=== PATIENT | male | born 1980 | race Caucasian/White ===

== ENCOUNTER 2021-12-28 13:24 | Outpatient (CLI) | payer MEDICARE ==
[2021-12-28 14:38] VITALS: BP 138/82
--- NOTE | 2021-12-28 14:38 | SLEEP CARE CONSULTATION ---
Information from patient questionnaire entered by Tonya Haines. I have reviewed and concur with the information entered by Tonya Haines. This document represents the service I personally performed and the decisions made by me, Kimberlee Thurman ARNP. History of Present Illness Service Date and Time: 12/28/2021 1324 Reason for Visit: New patient Chief Complaint: reports: Insomnia, Unrefreshed sleep, Snoring, Observed pauses in breathing, Fatigue, Frequent awakenings at night Date of Onset: 5+ years Usual bedtime: 2AM Time it takes to fall asleep: 1HR Snores at night: Yes Observed to quit breathing while asleep: Yes Sleeps alone due to snoring: Yes (sometimes gets kicked to couch) Number of times waking at night: 2-3, hard to go to sleep if awakens Reasons for waking at night: reports: Snoring, Bathroom, Other (NOISE, UNKNOWN REASONS ). denies: Choking, Gasping for air Toss, Turn, or Twitch while sleeping: Yes Recalls having dreams: No Usually gets out of bed at: 9AM Feels refreshed in the morning: No Morning headache: No Sleepy or fatigued during the day: Yes Ever fallen asleep while driving: No Takes day naps: Yes (3-4 days a week; 1-2 hrs) Dreams during day naps: Yes Prior sleep studies: No Additional HPI information: I had the pleasure of seeing ZAINAB MUSA today regarding the possibility of him having a sleep disorder. His current complaints are insomnia, unrefreshed sleep, snoring, observed pauses in breathing, fatigue and frequent night awakenings. He states he stops breathing at night and when he resumes he has a loud snore. - Parasomnia Symptoms Ever been unable to move upon waking from sleep: No Walks in sleep: No Talks in sleep: No Ever acted out dreams in sleep: No Ever felt weak in the knees when startled or emotional: No Bothered by creepy, crawly, restless sensations in legs: Yes (comes and goes; usually when trying to sleep) Problems with memory or concentration: No Subjective Initial [place] Sleepiness Scale score: 8 (12/03/2021) Past Medical History Past Medical History: reports: Anxiety, Other (Spectrum autism (possibly)) Social History The patient's occupation is a NOT EMPLOYED. Patient is Single and lives in [place]. Have you smoked in the past 12 months: Yes Cigarettes per day (20/pack): 1 Years of smokin Smoking Pack Years: 0 Alcohol use: Yes Alcohol amount and frequency: A FIFTH ONCE A MONTH Caffeine use: Yes Caffeine amount and frequency: 1 CUP A COFFEE 1 POP EVERYDAY Family History Family history of sleep disordered breathing: Yes Family Hx Sleep Apnea: Mother: Snoring, Sleep apnea - Treated, Father: Snoring, Sleep apnea - Treated Allergies and Home Medications Known drug allergies: No Drug allergies reviewed: Yes (NKDA) Home medication list reviewed: Yes (no daily medications) Review of Systems Weight gain over past 5 years: 20 Cardiovascular: denies: high blood pressure Gastrointestinal: denies: heartburn Neurological: denies: headaches, head trauma Psychiatric: reports: anxiety, other (possible autism) Ear/Nose/Throat: denies: tonsillectomy Physical Exam Vital signs obtained and entered by: TONYA Booth MA Blood Pressure: 138/82 (LEFT ARM) Cuff size: regular Heart Rate: 93 O2 Saturation: 97 Height: 5 ft 7 in Weight: 207 lb 3.2 oz Body Mass Index: 32.4 BMI Classification: Obese Neck circumference: 17 (inches) Mouth and throat: narrow oropharynx Soft palate: long Hard palate: normal Uvula: long Uvula visualization: 25% Mallampati Class III Tongue: enlarged in size with teeth hanley on lateral edges Tonsils: 3+/kissing Neck: normal w/o lymphadenopathy or thyromegaly Heart: regular rate and rhythm Lungs: clear bilaterally Impression and Plan 1. Suspected Obstructive Sleep Apnea-Hypopnea Syndrome, as suggested by a history of loud and irregular snoring, observed cessation of breath while asleep, frequent awakening during the night, unrefreshed sleep, and excessive daytime sleepiness. Narrow oropharynx and obesity are common predisposing factors for obstructive sleep apnea-hypopnea syndrome. I recommend proceeding to polysomnography to confirm the diagnosis and to assess severity. If the patient has significant sleep disordered breathing, a manual CPAP titration study will also be performed to find the optimal treatment pressure. I informed the patient of what the sleep studies involve and after some discussion, obtained agreement to proceed. The pathophysiology of obstructive sleep apnea-hypopnea syndrome was discussed with the patient and health risks of cardiovascular and cerebrovascular disease if not treated. Risks of drowsy driving discussed in detail and patient advised to avoid long distance driving and to pack puller at the first sign of drowsiness. Patient agreed to plan. * Schedule polysomnography * Avoid long distance driving or driving when feeling sleepy. * Avoid alcohol, sedative and muscle relaxant around bedtime. * Attempt to lose weight. * Review instructions provided by trained office staff on how to prepare for the sleep study. * Return for follow-up after sleep study completed. Counseling Topics: Weight loss health impact Visit Type: In Office Time Spent with Patient (minutes): 31 Provider Statement: I spent 100% of the Face to Face Visit with the patient with greater than 50% spent counseling the patient and coordination of care.
== END 2021-12-28 13:25 | disposition home or self-care (01) ==
LOC: SC 13:24
PROVIDERS: ATTEND Nurse Practitioner Family
DX: G47.10 Hypersomnia, unspecified (principal); R53.83 Other fatigue; G47.8 Other sleep disorders; R06.83 Snoring; R06.81 Apnea, not elsewhere classified; E66.9 Obesity, unspecified; Z68.32 Body mass index [BMI] 32.0-32.9, adult; F17.210 Nicotine dependence, cigarettes, uncomplicated
CPT/HCPCS: 99203; G0463; 99212

== ENCOUNTER 2022-01-16 19:14 | Outpatient (CLI) | payer MEDICARE, MEDICAID | END 2022-01-16 19:15 | disposition home or self-care (01) | LOC: SC 19:14 | PROVIDERS: ATTEND Nurse Practitioner Family | DX: G47.33 Obstructive sleep apnea (adult) (pediatric) (principal) | CPT/HCPCS: 95810 ==

== ENCOUNTER 2022-02-07 10:11 | Outpatient (CLI) | payer MEDICARE, MEDICAID ==
--- NOTE | 2022-02-07 11:05 | SLEEP CARE CONSULTATION ---
Information from patient questionnaire entered by Tonya Haines. I have reviewed and concur with the information entered by Tonya Haines. This document represents the service I personally performed and the decisions made by , Kimberlee Thurman ARNP. History of Present Illness Service Date and Time: 02/07/2022 1011 Initial [place] Sleepiness Scale score: 8 (12/03/2021) Current [place] Sleepiness Scale score: 8 (02/07/22) Additional HPI information: ZAINAB MUSA returns for follow up and results of the recently performed polysomnography. I explained the pathophysiology behind obstructive sleep apnea. We then spent quite a bit of time discussing different treatment options. For mild obstructive sleep apnea, surgery and oral appliance are alternatives to nasal CPAP therapy but in moderate or severe cases, nasal CPAP is the most effective and reliable treatment. Because apnea is primarily in supine position, then positional management therapy could be effective. Methods discussed such as positioning with pillows to prevent supine sleep. I reviewed the impact of weight changes on sleep apnea and strongly recommended losing weight. After some discussion, the patient opted to go with the nasal CPAP therapy. Nasal autoCPAP set at 4-15 cmH20 will be ordered with rationale explained. A manual titration study will be ordered if unable to find optimal pressure with office adjustments. I explained how CPAP machine works and what to expect when using the machine. Using CPAP every night in order to get used to it was emphasized. Patient advised to put CPAP mask on before getting into bed so as not to fall asleep without CPAP. To assist acclimation to CPAP use, it could also be used for a short time during day while reading or watching TV. The patient was instructed to call the CPAP supplier to discuss any mechanical problem that may occur. If the mask given is uncomfortable or is difficult to keep on through the night even with adjustment, contact the CPAP supplier as many will replace with another mask style if notified before 30 days. If snoring or perceives is not getting enough air or too much air from the machine, notify this office. Patient counseled not drink alcohol less than 4 hours before bedtime as it can increase snoring and apnea. Patient was cautioned about risks of drowsy driving until sleepiness symptoms resolve. Patient denies drowsy driving. Sleep Study - Results Type of Sleep Study: Polysomnography (COMPLETED 01/16/22) Prior sleep studies: No Polysomnography/Home Sleep Study results: IMPRESSION: The quality of the study is good. The patient had slightly reduced sleep efficiency due to sleep onset insomnia. The sleep architecture was abnormal for sleep fragmentation and reduced amount of time spent in REM sleep. Respiratory monitoring showed very severe obstructive sleep apnea- hypopnea (AHI = 64.3) associated with frequent arousals, oxyhemoglobin desaturation and mild hypoxia (amber oxygen saturation of 83%). The respiratory events occurred mainly during supine sleep (supine AHI = 66.2; non-supine = 9.23). Snore was light to moderate in intensity. There was no significant periodic leg movement of sleep. Cardiac rhythm was normal sinus rhythm with occasional tachycardia (max heart rate = 113 beats per minute). No abnormal behavior (parasomnia) observed during the night. Allergies and Home Medications Drug allergies reviewed: Yes (NKDA) Home medication list reviewed: Yes (no changes) Review of Systems Review of systems same as previous: Yes (no changes) Physical Exam Vital signs obtained and entered by: TONYA Booth MA Blood Pressure: 132/86 (LEFT ARM) Cuff size: regular Heart Rate: 91 O2 Saturation: 98 Height: 5 ft 7 in Weight: 212 lb 12.8 oz Body Mass Index: 33.3 BMI Classification: Obese Impression and Plan 1. Obstructive Sleep Apnea-Hypopnea Syndrome, very severe, with lowest oxygen saturation of 83%. Obviously this is the cause of the patients symptoms of unrefreshed sleep, and excessive daytime sleepiness. Positive pressure therapy could benefit his anxiety. As mentioned above, the patient will be started on nasal autoCPAP therapy with pressure set at 4-15 cmH2O. Compliance guidelines also reviewed. A copy of compliance guidelines will be given for reference at check out. Because the apnea is more severe supine, I instructed to avoid sleeping supine using pillow positioning until able to start CPAP use. 2. Hypoxemia, mild, with a amber oxygen saturation of 83% and 22.0 minutes spent under 90%. His baseline oxygen saturation was normal with an average oxygen saturation of 92%. 3. Obesity, unspecified. Currently patients BMI is 33.3. Obesity increases the risk of apnea, CPAP pressure requirements and overall health risks especially cardiovascular and diabetes. Thus patient is advised to lose weight. * Nasal auto CPAP therapy, pressure at 4-15 cm H2O. * Attempt to lose weight. * Avoid alcohol consumption near bedtime. * Avoid supine sleep until using CPAP. * The patient is again cautioned about driving until sleepiness completely resolves. * Return one month after CPAP obtained. I will assess response to therapy and compliance at that time. Counseling Topics: Weight loss health impact Visit Type: In Office Time Spent with Patient (minutes): 20 Provider Statement: I spent 100% of the Face to Face Visit with the patient with greater than 50% spent counseling the patient and coordination of care.
[2022-02-07 11:06] VITALS: BP 132/86
== END 2022-02-07 10:12 | disposition home or self-care (01) ==
LOC: SC 10:11
PROVIDERS: ATTEND Nurse Practitioner Family
DX: G47.33 Obstructive sleep apnea (adult) (pediatric) (principal); R09.02 Hypoxemia; E66.9 Obesity, unspecified; Z68.33 Body mass index [BMI] 33.0-33.9, adult
CPT/HCPCS: 99213; G0463; 99212

== ENCOUNTER 2022-04-04 13:56 | Outpatient (CLI) | payer MEDICARE, MEDICAID ==
--- NOTE | 2022-04-04 14:42 | SLEEP CARE CONSULTATION ---
Information from patient questionnaire entered by Tonya Haines. I have reviewed and concur with the information entered by Tonya Haines. This document represents the service I personally performed and the decisions made by , Kimberlee Thurman ARNP. History of Present Illness Service Date and Time: 04/04/2022 1356 Previous diagnosis: Very Severe, Obstructive Sleep Apnea-Hypopnea Syndrome AHI: 64.3 (in 2021) Reason for follow up: first compliance Equipment type: CPAP (RESMED Airsense 11 s/u 02/2022) Equipment obtained from: [facility] (got initial supplies) Mask style: Full face Backup mask available: No (other mask) Last cushion change: 3 weeks Prior sleep studies: No Type of Sleep Study: Polysomnography (COMPLETED 01/16/22) HPI additional information: ZAINAB MUSA was diagnosed to have very severe, AHI 64.3, obstructive sleep quality eng ea-hypopnea syndrome and returned today for CPAP therapy first compliance follow-up. Sleep Study - Results Type of Sleep Study: Polysomnography (COMPLETED 01/16/22) Prior sleep studies: No CPAP Compliance Data - Data Reviewed with Patient Average duration of nightly device use: 1 hour 40 minutes Compliance rate %: 0 ( days used) Current pressure setting (cmH2O): 4-15 (median 6.1, avg 10.3, max 10.7) Average residual AHI: 5.9 Central apnea: 1.6 Obstructive apnea: 0.7 Hypopnea: 3.0 Subjective Patient concerns: denies: aerophagia, mask discomfort, air blowing in eyes, mask leak noise, condensation in mask/hose, nasal congestion, dry mouth, nose, throat, epistaxis Observed to snore while using device: No Current pressure setting perceived as: too high On therapy, patient: denies: sleeping better, awakening more refreshed, being more awake and alert during the day, more rested overall, drowsiness while driving Initial [place] Sleepiness Scale score: 8 (12/03/2021) Current [place] Sleepiness Scale score: 5 (04/04/22) Allergies and Home Medications Drug allergies reviewed: Yes (NKDA) Home medication list reviewed: Yes (no changes) Review of Systems Review of systems same as previous: Yes (no changes) Physical Exam Vital signs obtained and entered by: TONYA Booth MA Blood Pressure: 130/78 (left arm) Cuff size: regular Heart Rate: 78 O2 Saturation: 96 Height: 5 ft 7 in Weight: 212 lb 3.2 oz Body Mass Index: 33.2 BMI Classification: Obese Impression and Plan 1. Obstructive Sleep Apnea-Hypopnea Syndrome, very severe, with poor treatment compliance and fair apnea control. On CPAP therapy, the patient has better sleep quality and is more rested overall. Patient states he was wearing his CPAP mask for at least four hours a night and getting good rest when he first started with the CPAP. He had to switch sleeping places with his roommate from bed to couch and then the pressure seemed to be going too high. He states that the pressure goes so high (to 10-12 on his machine) and he is unable to breathe. He gets will panic and has to take the mask off. He had other issues with humidity and condensation that he resolved with the help of his DME [facility]. He states the pressure being too high is the only issue left. He is using a full face mask. His residual AHI is elevated mildly at 6.9 with more hypopneas and central respiratory episodes than obstructive. The patients pressure will be changed to autoCPAP 4-8 cmH20 for patient comfort. Patient advised to contact me if pressure change is uncomfortable so that it can be adjusted. Goals for apnea control discussed. Patient's apnea severity and rationale for treatment to reduce apnea, improve sleep quality and reduce cardiovascular and cerebrovascular events was reviewed. I also reviewed the benefit of consistent device use of CPAP for anxiety. 2. Obesity, unspecified. Currently patients BMI is 33.2. Obesity increases the risk of apnea, CPAP pressure requirements and overall health risks especially cardiovascular and diabetes. Thus patient is advised to lose weight. * Change auto CPAP pressure to 4-8 cmH2O * Notify me if snoring with mask or feeling that the pressure is too much or too little * Attempt to lose weight * Call this office if any problems using CPAP * Return for follow up in 1-2 months, or sooner if concerns arise Counseling Topics: Spare mask, Weight loss health impact Visit Type: In Office Time Spent with Patient (minutes): 21 Provider Statement: I spent 100% of the Face to Face Visit with the patient with greater than 50% spent counseling the patient and coordination of care.
[2022-04-04 14:43] VITALS: BP 130/78
== END 2022-04-04 13:57 | disposition home or self-care (01) ==
LOC: SC 13:56
PROVIDERS: ATTEND Nurse Practitioner Family
DX: G47.33 Obstructive sleep apnea (adult) (pediatric) (principal); E66.9 Obesity, unspecified; Z68.33 Body mass index [BMI] 33.0-33.9, adult
CPT/HCPCS: 99213; G0463; 99212

== ENCOUNTER 2022-04-19 11:34 | Outpatient (CLI) | payer MEDICARE, MEDICAID ==
[2022-04-19 14:56] LABS: BASOPHILS % (AUTO) 0.3 %; EOSINOPHILS # (AUTO) 0.2 10^3/uL (0.0-0.7); EOSINOPHILS % (AUTO) 2.5 %; HCT - HEMATOCRIT 51.4 % (42.0-52.0); HGB - HEMOGLOBIN 17.5 g/dL (14.0-18.0); MEAN CORPUSCULAR HEMOGLOBIN 30.9 pg (27.0-31.0); MEAN CORPUSCULAR VOLUME 90.8 fL (80.0-94.0); MEAN PLATELET VOLUME 10.2 fL (7.4-11.4); MONOCYTES # (AUTO) 0.5 10^3/uL (0.0-1.0); MONOCYTES % (AUTO) 5.9 %; PLT - PLATELET COUNT 222 10^3/uL (130-450); RED BLOOD COUNT 5.66 10^6/uL (4.70-6.10); RED CELL DISTRIBUTION WIDTH 13.2 % (12.0-15.0); WHITE BLOOD COUNT 8.7 x10^3/uL (4.8-10.8)
[2022-04-19 15:19] LABS: ALBUMIN/GLOBULIN RATIO 1.1 (1.0-2.2); ALKALINE PHOSPHATASE 64 IU/L (42-121); ALT ALANINE AMINOTRANSFERASE 49 IU/L (10-60); AST ASPARTATE AMINOTRANSFERASE 24 IU/L (10-42); BILIRUBIN,TOTAL 0.5 mg/dL (0.2-1.0); BUN - BLOOD UREA NITROGEN 10 mg/dL (6-20); CALCIUM 9.7 mg/dL (8.5-10.3); CARBON DIOXIDE - CO2 27 mmol/L (21-32); CHLORIDE 105 mmol/L (101-111); CHOL/HDL RATIO 6.2 (<5.0); CHOLESTEROL 223 mg/dL; CREATININE 0.8 mg/dL (0.6-1.2); GFR - MDRD 107 (>89); GLUCOSE 116 mg/dL (70-100); HDL CHOLESTEROL 36 mg/dL; LDL CHOLESTEROL,CALCULATED 127 mg/dL; LDL/HDL RATIO 3.5 (<3.6); POTASSIUM 4.3 mmol/L (3.5-5.0); SODIUM 139 mmol/L (135-145); TOTAL PROTEIN 7.5 g/dL (6.7-8.2); TRIGLYCERIDES 301 mg/dL; VLDL CHOLESTEROL 60 mg/dL
[2022-04-19 20:45] LABS: ESTIMATED AVERAGE GLUCOSE 105 mg/dL (70-100); HEMOGLOBIN A1c% 5.3 % (4.27-6.07)
[2022-04-21 01:08] LABS: HCV AB Non Reactive (Non Reactive)
[2022-04-21 04:09] LABS: HIV SCREEN 4TH GENERATION Non Reactive (Non Reactive)
== END 2022-04-19 11:35 | disposition home or self-care (01) ==
LOC: LAB.S 11:34
PROVIDERS: ATTEND Nurse Practitioner Acute Care
DX: Z13.228 Encounter for screening for other metabolic disorders (principal); Z13.220 Encounter for screening for lipoid disorders; Z13.1 Encounter for screening for diabetes mellitus; Z13.0 Encounter for screening for diseases of the blood and blood-forming organs and certain disorders involving the immune mechanism; Z11.3 Encounter for screening for infections with a predominantly sexual mode of transmission
CPT/HCPCS: 36415; 80053; 80061; 83036; 85025; 86803; G0475; 83721; 87389

== ENCOUNTER 2023-03-30 13:58 | Outpatient (CLI) | payer MEDICARE, MEDICAID ==
[2023-03-30 19:57] LABS: BASOPHILS # (AUTO) 0.1 10^3/uL (0.0-0.1); BASOPHILS % (AUTO) 0.5 %; EOSINOPHILS # (AUTO) 0.2 10^3/uL (0.0-0.7); EOSINOPHILS % (AUTO) 2.4 %; HCT - HEMATOCRIT 52.6 % (42.0-52.0); HGB - HEMOGLOBIN 17.6 g/dL (14.0-18.0); LYMPHOCYTES # (AUTO) 3.2 10^3/uL (1.5-3.5); LYMPHOCYTES % (AUTO) 32.9 %; MEAN CORPUSCULAR HEMOGLOBIN 30.5 pg (27.0-31.0); MEAN CORPUSCULAR HGB CONC 33.5 g/dL (32.0-36.0); MEAN CORPUSCULAR VOLUME 91.2 fL (80.0-94.0); MEAN PLATELET VOLUME 9.9 fL (7.4-11.4); MONOCYTES # (AUTO) 0.7 10^3/uL (0.0-1.0); MONOCYTES % (AUTO) 6.8 %; NEUTROPHILS # (AUTO) 5.5 10^3/uL (1.5-6.6); PLT - PLATELET COUNT 255 10^3/uL (130-450); RED BLOOD COUNT 5.77 10^6/uL (4.70-6.10); WHITE BLOOD COUNT 9.7 x10^3/uL (4.8-10.8)
[2023-03-30 20:15] LABS: ALBUMIN 4.5 g/dL (3.2-5.5); ALBUMIN/GLOBULIN RATIO 1.5 (1.0-2.2); ALKALINE PHOSPHATASE 61 IU/L (42-121); ALT ALANINE AMINOTRANSFERASE 57 IU/L (10-60); AST ASPARTATE AMINOTRANSFERASE 28 IU/L (10-42); BILIRUBIN,TOTAL 0.5 mg/dL (0.2-1.0); BUN - BLOOD UREA NITROGEN 11 mg/dL (6-20); CARBON DIOXIDE - CO2 29 mmol/L (21-32); CHLORIDE 102 mmol/L (101-111); CHOL/HDL RATIO 7.1 (<5.0); CHOLESTEROL 228 mg/dL; GFR - MDRD 82 (>89); GLUCOSE 89 mg/dL (74-104); HDL CHOLESTEROL 32 mg/dL; LDL CHOLESTEROL,CALCULATED 147 mg/dL; LDL/HDL RATIO 4.6 (<3.6); SODIUM 136 mmol/L (135-145); TOTAL PROTEIN 7.5 g/dL (6.4-8.9); TRIGLYCERIDES 246 mg/dL (48-352); VLDL CHOLESTEROL 49 mg/dL
== END 2023-03-30 13:59 | disposition home or self-care (01) ==
LOC: LAB.S 13:58
PROVIDERS: ATTEND Nurse Practitioner Acute Care
DX: Z13.228 Encounter for screening for other metabolic disorders (principal); Z13.220 Encounter for screening for lipoid disorders; Z13.0 Encounter for screening for diseases of the blood and blood-forming organs and certain disorders involving the immune mechanism
CPT/HCPCS: 36415; 80053; 80061; 83721; 85025

== ENCOUNTER 2023-07-06 14:13 | Outpatient (CLI) | payer MEDICARE, MEDICAID ==
[2023-07-06 20:08] LABS: BASOPHILS # (AUTO) 0.1 10^3/uL (0.0-0.1); BASOPHILS % (AUTO) 0.4 %; EOSINOPHILS # (AUTO) 0.3 10^3/uL (0.0-0.7); EOSINOPHILS % (AUTO) 2.5 %; HCT - HEMATOCRIT 50.9 % (42.0-52.0); LYMPHOCYTES # (AUTO) 4.3 10^3/uL (1.5-3.5); LYMPHOCYTES % (AUTO) 36.3 %; MEAN CORPUSCULAR HEMOGLOBIN 30.5 pg (27.0-31.0); MEAN CORPUSCULAR HGB CONC 33.4 g/dL (32.0-36.0); MEAN CORPUSCULAR VOLUME 91.2 fL (80.0-94.0); MONOCYTES # (AUTO) 0.8 10^3/uL (0.0-1.0); MONOCYTES % (AUTO) 6.8 %; NEUTROPHILS # (AUTO) 6.3 10^3/uL (1.5-6.6); NEUTROPHILS % (AUTO) 53.5 %; PLT - PLATELET COUNT 261 10^3/uL (130-450); RED BLOOD COUNT 5.58 10^6/uL (4.70-6.10); RED CELL DISTRIBUTION WIDTH 13.2 % (12.0-15.0); WHITE BLOOD COUNT 11.8 x10^3/uL (4.8-10.8)
[2023-07-06 20:32] LABS: ALBUMIN 4.7 g/dL (3.2-5.5); ALBUMIN/GLOBULIN RATIO 1.7 (1.0-2.2); ALKALINE PHOSPHATASE 61 IU/L (42-121); ALT ALANINE AMINOTRANSFERASE 63 IU/L (10-60); AST ASPARTATE AMINOTRANSFERASE 29 IU/L (10-42); BILIRUBIN,TOTAL 0.5 mg/dL (0.2-1.0); BUN - BLOOD UREA NITROGEN 12 mg/dL (6-20); CARBON DIOXIDE - CO2 27 mmol/L (21-32); CHLORIDE 102 mmol/L (101-111); CHOL/HDL RATIO 4.6 (<5.0); CHOLESTEROL 161 mg/dL; CREATININE 0.9 mg/dL (0.6-1.3); GFR - MDRD 93 (>89); GLUCOSE 95 mg/dL (74-104); HDL CHOLESTEROL 35 mg/dL; LDL CHOLESTEROL,CALCULATED 78 mg/dL; LDL/HDL RATIO 2.2 (<3.6); POTASSIUM 4.3 mmol/L (3.5-4.5); SODIUM 135 mmol/L (135-145); TOTAL PROTEIN 7.5 g/dL (6.4-8.9); TRIGLYCERIDES 239 mg/dL (48-352); VLDL CHOLESTEROL 48 mg/dL
== END 2023-07-06 14:14 | disposition home or self-care (01) ==
LOC: LAB.S 14:13
PROVIDERS: ATTEND Nurse Practitioner Acute Care
DX: Z13.220 Encounter for screening for lipoid disorders (principal); Z13.228 Encounter for screening for other metabolic disorders; Z13.0 Encounter for screening for diseases of the blood and blood-forming organs and certain disorders involving the immune mechanism; I10 Essential (primary) hypertension
CPT/HCPCS: 36415; 80053; 80061; 83721; 85025

== ENCOUNTER 2023-10-22 18:45 | Emergency (ER) | payer MEDICARE, MEDICAID ==
[2023-10-22 19:19] LABS: BASOPHILS % (AUTO) 0.1 %; EOSINOPHILS % (AUTO) 0.1 %; HGB - HEMOGLOBIN 17.5 g/dL (14.0-18.0); LYMPHOCYTES # (AUTO) 2.3 10^3/uL (1.5-3.5); LYMPHOCYTES % (AUTO) 14.9 %; MEAN CORPUSCULAR HEMOGLOBIN 31.1 pg (27.0-31.0); MEAN PLATELET VOLUME 9.4 fL (7.4-11.4); MONOCYTES # (AUTO) 0.4 10^3/uL (0.0-1.0); MONOCYTES % (AUTO) 2.6 %; NEUTROPHILS # (AUTO) 12.4 10^3/uL (1.5-6.6); NEUTROPHILS % (AUTO) 81.9 %; PLT - PLATELET COUNT 253 10^3/uL (130-450); RED BLOOD COUNT 5.62 10^6/uL (4.70-6.10); WHITE BLOOD COUNT 15.1 x10^3/uL (4.8-10.8)
[2023-10-22 19:31] LABS: ALBUMIN 4.8 g/dL (3.2-5.5); ALBUMIN/GLOBULIN RATIO 1.5 (1.0-2.2); BILIRUBIN,TOTAL 0.6 mg/dL (0.2-1.0); CALCIUM 10.3 mg/dL (8.5-10.3)
[2023-10-22 22:40] LABS: BILIRUBIN,URINE NEGATIVE (NEGATIVE); GLUCOSE, URINE (UA) NEGATIVE (NEGATIVE); KETONES,URINE (UA) 15 mg/dL (NEGATIVE); LEUKOCYTE ESTERASE, URINE NEGATIVE (NEGATIVE); NITRITE,URINE NEGATIVE (NEGATIVE); OCCULT BLOOD,URINE NEGATIVE (NEGATIVE); PH,URINE 7.5 PH (5.0-7.5); PROTEIN,URINE TRACE mg/dL (NEGATIVE); UROBILINOGEN,URINE 0.2 (NORMAL) E.U./dL (NORMAL)
[2023-10-22 22:42] LABS: CLARITY,URINE CLEAR (CLEAR)
--- NOTE | 2023-10-22 23:11 | ED Physician Documentation ---
PD HPI ABD PAIN - Stated complaint Stated Complaint: ABD PX - Chief complaint Chief Complaint: Abd Pain - History obtained from History obtained from: Patient - Additional information Additional information: HPI from patient. Patient complains of nausea and vomiting since approximately 3 AM with episodic abdominal pain. He describes abdominal pain as cramping, and indicates it is located predominantly in the epigastrium, with lesser pain in the bilateral upper quadrants and the periumbilic us. Denies history of similar symptoms. Denies any past surgical history. He says the symptoms (pain, nausea, vomiting) all worsened with any p.o. intake including even liquids to the point of "unable to hold anything down" (per patient). He has taken Tums and Rolaids without any relief. He feels partial and transient relief of symptoms after vomiting. He notes red color of vomitus this evening and he says he thinks it might have been blood. Denies heavy/regular alcohol use, denies regular NSAID use. Review of Systems Constitutional: reports: Reviewed and negative Cardiac: reports: Reviewed and negative Respiratory: reports: Reviewed and negative GI: reports: Abdominal Pain, Nausea, Vomiting, Hematemesis. denies: Constipation, Diarrhea, Bloody / black stool PD PAST MEDICAL HISTORY - Past Medical History Past Medical History: Yes Cardiovascular: Hypertension, High cholesterol Respiratory: Sleep apnea Neuro: None Endocrine/Autoimmune: None GI: None : None HEENT: None Psych: None Musculoskeletal: None Derm: None - Past Surgical History Past Surgical History: No - Present Medications Home Medications: Ambulatory Orders Medication Instructions Recorded Confirmed HYDROcod/ACETAM 5/325 [[place] 5/325] 1 - 2 tablet PO Q6H PRN #10 tablet 10/23/23 Ondansetron Odt [Zofran Odt] 4 mg TL Q6H PRN #14 tablet 10/23/23 - Allergies Allergies/Adverse Reactions: Allergies Allergy/AdvReac Type Severity Reaction Status Date / Time No Known Drug Allergies Allergy Verified 10/22/23 18:56 - Social History Does the pt smoke?: Yes Smoking Status: Current every day smoker Does the pt drink ETOH?: No Does the pt have substance abuse?: No - Immunizations Immunizations are current?: Yes - POLST Patient has POLST: No PD ED PE NORMAL - Vitals Vital signs reviewed: Yes - General General: Alert and oriented X 3, No acute distress, Well developed/nourished - HEENT HEENT: Other (tacky mucous membranes) - Cardiac Cardiac: RRR, No murmur - Respiratory Respiratory: No respiratory distress, Clear bilaterally - Abdomen Abdomen: Soft, Non distended, Other (mild-moderate TTP across upper abdomen most pronounced in epigastrium . no rebound nor guarding) - Derm Derm: Normal color, Warm and dry Results - Vitals Vitals: Vital Signs - 24 hr 10/22/23 10/22/23 10/23/23 18:56 23:11 01:08 Temperature 36.6 C Heart Rate 108 H 86 92 Respiratory 18 20 18 Rate Blood Pressure 137/88 H 155/96 H 128/76 O2 Saturation 99 99 98 10/23/23 10/23/23 01:20 03:13 Temperature 36.3 C L Heart Rate 80 Respiratory 16 Rate Blood Pressure 126/70 O2 Saturation 98 Oxygen O2 Source Room air - Labs Labs: Laboratory Tests 10/22/23 10/22/23 10/22/23 19:14 19:14 20:45 WBC 15.1 H RBC 5.62 Hgb 17.5 Hct 50.0 MCV 89.0 MCH 31.1 H MCHC 35.0 RDW 13.0 Plt Count 253 MPV 9.4 Neut # (Auto) 12.4 H Lymph # (Auto) 2.3 [place] # (Auto) 0.4 Eos # (Auto) 0.0 Baso # (Auto) 0.0 Absolute Nucleated RBC 0.00 Nucleated RBC % 0.0 Sodium 135 Potassium 4.0 Chloride 99 L Carbon Dioxide 25 Anion Gap 11.0 BUN 13 Creatinine 1.0 Estimated GFR (MDRD) 82 L Glucose 142 H Calcium 10.3 Total Bilirubin 0.6 AST 29 ALT 73 H Alkaline Phosphatase 67 Total Protein 8.0 Albumin 4.8 Globulin 3.2 Albumin/Globulin Ratio 1.5 Lipase 35 Urine Color DARK YELLOW Urine Clarity CLEAR Urine pH 7.5 Ur Specific [place] 1.015 Urine Protein TRACE Urine Glucose (UA) NEGATIVE Urine Ketones 15 H Urine Occult Blood NEGATIVE Urine Nitrite NEGATIVE Urine Bilirubin NEGATIVE Urine Urobilinogen 0.2 (NORMAL) Ur Leukocyte Esterase NEGATIVE Ur Microscopic Review NOT INDICATED Urine Culture Comments NOT INDICATED - Rads (name of study) RUQ US Relevant Findings:: Prelim report reviewed, See rad report PD Medical Decision Making - ED course Complexity details: reviewed results, re-evaluated patient, considered differential, d/w patient ED course: Given 1 liters NS IV, as well as protonix, toradol, and morphine (all IV). No concerning nor diagnostic findings on blood tests, urinalysis. Leukocytosis is noted (15.1 WBC). RUQ US notable for fatty liver but otherwise unremarkable including no evidence of gallstones. Results discussed with patient, return precautions reviewed. Etiology of symptoms not apparent at this time. He was provided take-home pack of Vicodin and have electronically submitted prescriptions for Vicodin and Zofran to patient's pharmacy of choice. Prior to discharge, he is given a second dose of IV Zofran 4 mg and subsequently is tolerating PO liquids without n/v. Departure - Departure Disposition: 01 Home, Self Care Clinical Impression: Vomiting Qualifiers: Vomiting type: unspecified Nausea presence: with nausea Qualified Code(s): R11.2 - Nausea with vomiting, unspecified Condition: Good Instructions: ED Nausea Vomiting Follow-Up: Barbara Connor ARNP [Primary Care Provider] - Prescriptions: HYDROcod/ACETAM 5/325 [[place] 5/325] 1 - 2 tablet PO Q6H PRN #10 tablet PRN Reason: Pain Ondansetron Odt [Zofran Odt] 4 mg TL Q6H PRN #14 tablet PRN Reason: Nausea / Vomiting Comments: There were no concerning nor diagnostic findings on tonight's blood tests, urinalysis. The ultrasound shows no evidence of gallstones; as we discussed, there there were findings on the ultrasound to suggest "fatty liver". This is an incidental finding but you should mention it to your primary care provider when you next follow-up with them to see if further testing regarding this finding is indicated. I have electronically submitted prescriptions for ondansetron (antinausea medication) and Vicodin (narcotic/opiate pain medication) to the [facility] pharmacy in [place]. You should also take an pavs-fiu-smwpfjo acid-blocking medication such as Prilosec or Nexium once per day for the next 2 weeks. Contact your primary care provider's office when they next open to arrange for the next available appointment for follow-up/reevaluation. I am prescribing a short course of narcotic pain medication for you. These are potentially dangerous and addictive medications that should be used carefully. These medications may constipate you. Take an nasz-tlq-bfrpdpk stool softener (docusate) twice daily with plenty of water while taking these medications. If you go 24 hours without a bowel movement, take vsur-kor-wryedxr miralax, per package instructions. Do not drink or drive while taking these medications. If you received narcotic or sedating medications while in the emergency department, do not drive for 24 hours. Store this medication in a safe, secure place and out of reach of children. It is a violation of federal law to give or sell this medication to another person or to use in a manner other than prescribed. The ED will not refill narcotic prescriptions, including prescriptions lost or stolen. To dispose of unwanted medications: 1. [facility] at [address] in [place] has a medication drop box. They accept prescription medications (in pill form) Sunday through Sunday 9:00 a.m. to 5:00 p.m. 2. [facility], [place] [employer] accepts prescription medications (in pill form only) for disposal year round. Call for more informat ion. 3. Contact the [facility] for the next [facility] sponsored prescription drug collection event. , [phone], or [phone]; Note that many narcotic pain relievers also contain Tylenol/acetaminophen. Please ensure that your total dose of acetaminophen from all sources does not exceed 3 g (3000 mg) per day. Discharge Date/Time: 10/23/23 03:14
[2023-10-22] MEDS: KETOROLAC 15 MG/ML VIAL IVP STA (23:56)
[2023-10-22] MEDS: PANTOPRAZOLE 40 MG VIAL IVP STA (23:56)
[2023-10-22] MEDS: SODIUM CHLORIDE 0.9% 1,000 ML IV STA (23:57)
[2023-10-22] MEDS: ONDANSETRON 4 MG/2 ML VIAL IVP STA (23:57)
[2023-10-23] MEDS: MORPHINE 2 MG/ML CARPUJECT IVP STA (00:25)
--- NOTE | 2023-10-23 00:36 | Ultrasound Report ---
PROCEDURE: Abdomen Limited INDICATIONS: abd. pain TECHNIQUE: Real-time focused scanning was performed of the abdomen, with image documentation. COMPARISONS: None. FINDINGS: Liver: Liver is enlarged in size at 20.9 cm craniocaudad, and homogeneous in echotexture, diffusely hyperechoic consistent with fatty infiltration. Gallbladder: No gallstones, sludge, wall thickening or pericholecystic edema. Biliary ducts: Intrahepatic bile ducts are non-dilated. Extrahepatic bile duct caliber measures 5.2 mm. Normal is 6-7 mm or less in diameter, or 10 mm or less post-cholecystectomy. Pancreas: Visualized portions of the pancreas are sonographically normal. Right kidney: Normal in size and echotexture. Right kidney measures 11.8 cm long. No hydronephrosis or nephrolithiasis. No solid masses. No complex renal cystic lesions which require follow-up. IVC: Intrahepatic inferior vena cava is patent. Miscellaneous: No free abdominal fluid. IMPRESSION: No gallbladder disease found. No biliary distention identified. Diffuse fatty infiltration throughout the enlarged liver which measures up to 20.9 cm craniocaudad. Reviewed by: Aramis Mckeon MD on 10/23/2023 12:34 AM PDT Approved by: Aramis Mckeon MD on 10/23/2023 12:34 AM PDT Station ID: [id number]
[2023-10-23 01:12] VITALS: O2SAT 98
[2023-10-23] MEDS: ONDANSETRON ODT 4 MG Prepack 2 TL PRN (03:02)
[2023-10-23] MEDS: HYDROcod/ACET 5/325 Prepack 4 PO STA (03:02)
[2023-10-23 03:19] VITALS: BP 126/70
== END 2023-10-23 03:14 | disposition home or self-care (01) ==
LOC: ED 18:45
DX: R11.2 Nausea with vomiting, unspecified (principal); R10.13 Epigastric pain; K76.0 Fatty (change of) liver, not elsewhere classified; I10 Essential (primary) hypertension; E78.00 Pure hypercholesterolemia, unspecified; F17.200 Nicotine dependence, unspecified, uncomplicated
CPT/HCPCS: 36415; 76705; 80053; 81003; 83690; 85025; 96361; 96374; 96375; 99284; 99285; A9270; 81001; 87086